=== PATIENT | female | born 1960 | race Caucasian/White ===

== ENCOUNTER 2022-01-29 10:30 | Emergency (ER) | payer OTHER ==
[2022-01-29 11:08] VITALS: BP 137/81; PULSE 71; TEMP 98.6; BMI 24.7
== END 2022-01-29 11:17 | disposition home or self-care (01) ==
LOC: FER 10:30
DX: S50.311A Abrasion of right elbow, initial encounter (principal); V01.90XA Pedestrian on foot injured in collision with pedal cycle, unspecified whether traffic or nontraffic accident, initial encounter
CPT/HCPCS: 99281-25